=== PATIENT | female | born 1985 | race Caucasian/White ===

== ENCOUNTER 2018-06-25 09:02 | Emergency (ER) | payer MEDICAID ==
[~2018-06-25] VITALS: Ht 157.5 cm; Wt 73.0 kg
[~2018-06-25 09:02] MED LIST: PRENATAL VITS
[2018-06-25 09:20] VITALS: BP 126/91
== END 2018-06-25 11:41 | disposition left against medical advice (07) ==
LOC: ER 09:02
DX: Z53.21 Procedure and treatment not carried out due to patient leaving prior to being seen by health care provider (principal)